=== PATIENT | male | born 1980 | race Caucasian/White ===

== ENCOUNTER 2018-04-15 13:56 | Emergency (ER) | payer BC, OTHER ==
[~2018-04-15] VITALS: Ht 180.3 cm; Wt 83.9 kg
--- NOTE | 2018-04-15 14:32 | ED Abdominal Pain ---
General Chief Complaint: Abdominal/GI Problems Stated Complaint: ABD/RECTAL PAIN Nursing Triage Note: TO ROOM REPORTS NOTICED BLOOD ON TOILET PAPER 2DAYS AGO. YESTERDAY HAD DIARRHEA STOOL THAT WAS LOOSE AND ORANGE AND YELLOW IN COLOR. TODAY ATE [facility] AND VOMITED AFTER. JUST FINISHED STEROID Sepsis Screen: No Definite Risk Source of Information: Patient Exam Limitations: No Limitations History of Present Illness Date Seen by Provider: Apr 15, 2018 Time Seen by Provider: 14:27 Initial Comments Patient is a 37-year-old male who presents to the emergency room with complaints of rectal bleeding, nausea, and diarrhea for the past 2 days. He reports that he was seen yesterday by his primary care physician in [place] and treated for hemorrhoids. He reports that he was instructed to use Preparation H. He reports that there was not an exam done. He denies history of hemorrhoids. He reports that he did have [employer] morning for breakfast and vomited one time after this. He denies abdominal pain. Timing/Duration: 1-2 Days Associated Symptoms: No Fever/Chills; Nausea/Vomiting, Other (diarrhea) Allergies and Home Medications Allergies Coded Allergies: nickel (Verified Allergy, Unknown, 04/15/18) Home Medications Ondansetron 4 Mg Tab.rapdis, 4 MG SL Q4H PRN for NAUSEA/VOMITING-1ST LINE Prescribed by: BHAKTI JEREZ on 04/15/18 1525 Patient Home Medication List Home Medication List Reviewed: Yes Review of Systems Constitutional: see HPI; No fever Gastrointestinal: See HPI; Denies Abdomen Distended, Denies Abdominal Pain; Blood Streaked Stools; Denies Constipated; Diarrhea; Denies Difficulty Swallowing; Nausea; Denies Poor Appetite, Denies Poor Fluid Intake; Rectal Bleeding, Vomiting Genitourinary: No Symptoms Reported All Other Systems Reviewed Negative Unless Noted: Yes Past [place] Hx Past Med/Social Hx: Reviewed Nursing Past Med/Soc Hx Patient Social History Alcohol Use: Denies Use Recreational Drug Use: Yes (POT) Smoking Status: Never a Smoker Recent Foreign Travel: No Contact w/Someone Who Travel: No Recent Infectious Disease Expo: No Past Medical History Surgeries: No Respiratory: No Cardiac: No Neurological: No Genitourinary: No Gastrointestinal: No Musculoskeletal: No Endocrine: No HEENT: No Cancer: No Psychosocial: No Integumentary: No Family Medical History Reviewed Nursing Family Hx Physical Exam Vital Signs Vital Signs - First Documented 04/15/18 14:04 Temp 98.9 Pulse 69 Resp 18 B/P (MAP) 143/75 (97) Pulse Ox 98 O2 Delivery Room Air Capillary Refill : Less Than 3 Seconds Height/Weight/BMI Height: 5'11.00" Weight: 185lbs. oz. [id number]; BMI Method:Stated General Appearance: WD/WN, no apparent distress Respiratory: chest non-tender, lungs clear, normal breath sounds, no respiratory distress, no accessory muscle use Cardiovascular: regular rate, rhythm, no edema, no gallop, no JVD, no murmur Gastrointestinal: normal bowel sounds, non tender, soft, no organomegaly, no pulsatile mass Rectal: normal exam (assisted by Catalina HORNER), normal rectal tone, heme negative stool; No hemorrhoids, No mass, No tenderness; other (normal prostate) Neurologic/Psychiatric: alert, normal mood/affect, oriented x 3 Progress/Results/Core Measures Results/Orders Lab Results Laboratory Tests Test 04/15/18 14:24 Range/Units White Blood Count 13.7 H 4.3-11.0 10^3/uL Red Blood Count 5.27 4.35-5.85 10^6/uL Hemoglobin 15.7 13.3-17.7 G/DL Hematocrit 45 40-54 % Mean Corpuscular Volume 86 80-99 FL Mean Corpuscular Hemoglobin 30 25-34 PG Mean Corpuscular Hemoglobin Concent 35 32-36 G/DL Red Cell Distribution Width 14.3 10.0-14.5 % Platelet Count 281 130-400 10^3/uL Mean Platelet Volume 9.5 7.4-10.4 FL Neutrophils (%) (Auto) 69 42-75 % Lymphocytes (%) (Auto) 24 12-44 % Monocytes (%) (Auto) 6 0-12 % Eosinophils (%) (Auto) 1 0-10 % Basophils (%) (Auto) 0 0-10 % Neutrophils # (Auto) 9.5 H 1.8-7.8 X 10^3 Lymphocytes # (Auto) 3.3 1.0-4.0 X 10^3 Monocytes # (Auto) 0.9 0.0-1.0 X 10^3 Eosinophils # (Auto) 0.1 0.0-0.3 10^3/uL Basophils # (Auto) 0.0 0.0-0.1 10^3/uL Urine Color YELLOW Urine Clarity CLEAR Urine pH 7 5-9 Urine Specific [place] 1.015 L 1.016-1.022 Urine Protein NEGATIVE NEGATIVE Urine Glucose (UA) NEGATIVE NEGATIVE Urine Ketones NEGATIVE NEGATIVE Urine Nitrite NEGATIVE NEGATIVE Urine Bilirubin NEGATIVE NEGATIVE Urine Urobilinogen NORMAL NORMAL MG/DL Urine Leukocyte Esterase NEGATIVE NEGATIVE Urine RBC (Auto) NEGATIVE NEGATIVE Urine RBC NONE /HPF Urine WBC NONE /HPF Urine Squamous Epithelial Cells RARE /HPF Urine Crystals NONE /LPF Urine Bacteria NEGATIVE /HPF Urine Casts NONE /LPF Urine Mucus NEGATIVE /LPF Urine Culture Indicated NO Sodium Level 140 135-145 MMOL/L Potassium Level 3.6 3.6-5.0 MMOL/L Chloride Level 105 98-107 MMOL/L Carbon Dioxide Level 24 21-32 MMOL/L Anion Gap 11 5-14 MMOL/L Blood Urea Nitrogen 12 7-18 MG/DL Creatinine 0.95 0.60-1.30 MG/DL Estimat Glomerular Filtration Rate > 60 BUN/Creatinine Ratio 13 Glucose Level 147 H 70-105 MG/DL Calcium Level 9.6 8.5-10.1 MG/DL Total Bilirubin 0.6 0.1-1.0 MG/DL Aspartate Amino Transf (AST/SGOT) 19 5-34 U/L Alanine Aminotransferase (ALT/SGPT) 23 0-55 U/L Alkaline Phosphatase 73 40-136 U/L Total Protein 7.1 6.4-8.2 GM/DL Albumin 4.5 3.2-4.5 GM/DL Amylase Level 73 25-125 U/L Lipase 20 8-78 U/L My Orders Orders - BHAKTI JEREZ Comprehensive Metabolic Panel (04/15/18 14:27) Lipase (04/15/18 14:27) Amylase (04/15/18 14:27) Ua Culture If Indicated (04/15/18 14:27) Saline Lock/Iv-Start (04/15/18 14:27) Cbc With Automated Diff (04/15/18 14:27) Ondansetron Injection (Zofran Injectio (04/15/18 14:45) Iv Push Director Compliance Ed (04/15/18 ) Medications Given in ED Vital Signs/I&O 04/15/18 04/15/18 14:04 15:34 Temp 98.9 98.9 Pulse 69 69 Resp 18 18 B/P (MAP) 143/75 (97) 143/75 (97) Pulse Ox 98 98 O2 Delivery Room Air Blood Pressure Mean: 97 Progress Progress Note : Time: 15:17 Progress Note The patient is free of nausea at this time. I informed him that his lab values were normal. He did have an elevated white blood cell count that I believe is from the diarrhea. He still remains pain-free. I informed him that his rectal exam was normal, there was no gross blood noted on exam, and Hemoccult was negative. He agrees with close follow-up with his primary care physician Dr. Durand in [place] and he was given return precautions. Initial ECG Impression Date: Apr 15, 2018 Departure Impression Primary Impression: Nausea and vomiting Additional Impression: Diarrhea Disposition: 01 HOME, SELF-CARE Condition: Stable/Unchanged Departure-Patient Inst. Decision time for Depature: 15:20 Referrals: NO,LOCAL PHYSICIAN (PCP) Primary Care Physician Patient Instructions: Diarrhea in Adolescents and Adults, Nausea and Vomiting, Adult (DC) Add. Discharge Instructions: You may use [id number] antidiarrheals. Eat a clear liquid diet and advanced to a bland diet as tolerated for the next few days until the nausea and vomiting resolve. Take the Zofran as directed. Follow-up with Dr. Durand within 1 week for a recheck, call today or first thing tomorrow for an appointment time. Return back to the emergency room should you develop abdominal pain, , increased nausea, vomiting, diarrhea, or any other concerns as needed. All discharge instructions reviewed with patient and/or family. Voiced understanding. Scripts Ondansetron (Zofran Odt) 4 Mg Tab.rapdis 4 MG SL Q4H PRN for NAUSEA/VOMITING-1ST LINE, #14 TAB Prov: BHAKTI JEREZ 04/15/18 BHAKTI JEREZ Apr 15, 2018 14:32
[2018-04-15] MEDS ORDERED: ONDANSETRON 4 MG/2 ML (SDV) Z0FRAN IVP ONE (14:45)
[2018-04-15 14:50] LABS: BILIRUBIN,URINE NEGATIVE (NEGATIVE); CLARITY,URINE CLEAR; COLOR,URINE YELLOW; GLUCOSE, URINE (UA) NEGATIVE (NEGATIVE); KETONES,URINE NEGATIVE (NEGATIVE); LEUKOCYTE ESTERASE ,URINE NEGATIVE (NEGATIVE); NITRITE,URINE NEGATIVE (NEGATIVE); PH,URINE 7 (5-9); PROTEIN,URINE NEGATIVE (NEGATIVE); UROBILINOGEN,URINE NORMAL (NORMAL)
[2018-04-15 14:52] LABS: BASOPHILS % (AUTO) 0 % (0-10); EOSINOPHILS # (AUTO) 0.1 10^3/uL (0.0-0.3); EOSINOPHILS % (AUTO) 1 % (0-10); HEMATOCRIT 45 % (40-54); HEMOGLOBIN 15.7 G/DL (13.3-17.7); LYMPHOCYTES # (AUTO) 3.3 X 10^3 (1.0-4.0); LYMPHOCYTES % (AUTO) 24 % (12-44); MEAN CORPUSCULAR HEMOGLOBIN 30 PG (25-34); MEAN CORPUSCULAR HGB CONC 35 G/DL (32-36); MEAN CORPUSCULAR VOLUME 86 FL (80-99); MEAN PLATELET VOLUME 9.5 FL (7.4-10.4); MONOCYTES # (AUTO) 0.9 X 10^3 (0.0-1.0); MONOCYTES % (AUTO) 6 % (0-12); NEUTROPHILS # (AUTO) 9.5 X 10^3 (1.8-7.8); NEUTROPHILS % (AUTO) 69 % (42-75); PLATELET COUNT 281 10^3/uL (130-400); RED BLOOD COUNT 5.27 10^6/uL (4.35-5.85); RED CELL DISTRIBUTION WIDTH 14.3 % (10.0-14.5); WHITE BLOOD COUNT 13.7 10^3/uL (4.3-11.0)
[2018-04-15 15:07] LABS: ALANINE AMINOTRANSFERASE 23 U/L (0-55); ALBUMIN 4.5 GM/DL (3.2-4.5); ALKALINE PHOSPHATASE 73 U/L (40-136); AMYLASE 73 U/L (25-125); BACTERIA,URINE NEGATIVE /HPF; BILIRUBIN,TOTAL 0.6 MG/DL (0.1-1.0); BUN/CREATININE RATIO 13; CALCIUM 9.6 MG/DL (8.5-10.1); CARBON DIOXIDE 24 MMOL/L (21-32); CHLORIDE 105 MMOL/L (98-107); CREATININE SERUM 0.95 MG/DL (0.60-1.30); GFR ESTIMATED > 60; GLUCOSE 147 MG/DL (70-105); LIPASE 20 U/L (8-78); POTASSIUM 3.6 MMOL/L (3.6-5.0); SODIUM 140 MMOL/L (135-145); SQUAMOUS EPITHELIAL CELL,UR RARE /HPF; TOTAL PROTEIN 7.1 GM/DL (6.4-8.2)
[2018-04-15] MEDS ORDERED: ONDA4TAB8 SL (15:25)
[2018-04-15 15:34] VITALS: BP 143/75
== END 2018-04-15 15:28 | disposition home or self-care (01) ==
LOC: ER 14:01
DX: R11.2 Nausea with vomiting, unspecified (principal); R19.7 Diarrhea, unspecified; F12.10 Cannabis abuse, uncomplicated; Z88.8 Allergy status to other drugs, medicaments and biological substances
CPT/HCPCS: 36415; 80053; 81000; 82150; 83690; 85025; 96374